=== PATIENT | male | born 1970 | race Caucasian/White ===

== ENCOUNTER 2025-05-17 17:50 | Emergency (ER) | payer OTHER, SELFPAY ==
[2025-05-17 17:59] VITALS: BP 182/114; PULSE 76; RESP 16; TEMP 36.6; O2SAT 96; BMI 42.3
--- NOTE | 2025-05-17 18:09 | ED.WOUNDLAC ---
HPI - Wound/Laceration General Chief Complaint: Wound/Laceration Stated Complaint: R index finger laceration Time Seen by Provider: 05/17/25 18:08 History of Present Illness HPI narrative: Mr. Cabral is a pleasant 55-year-old male with a past medical history of hypertension, ANDREY who presents to the emergency department for a laceration to his right index finger that occurred while working on the [employer]. Patient states he was attempting to open the packaging on a small battery when his pocket knife slipped and cut the back of his right index finger. He now has a 2 cm linear laceration on the dorsal aspect of the distal phalanx. No nail bed involvement. Bleeding is controlled with direct pressure. No blood thinner use. Tdap not up-to-date within last 5 years. Related Data Home Medications ?Medication ?Instructions ?Recorded ?Confirmed [VICODIN] PRN ##0 02/09/11 05/10/19 [employer] Dreamstation BIPAP #1 ea 11/09/18 05/10/19 Previous Rx's ?Medication ?Instructions ?Recorded lisinopril 40 mg tablet (Zestril) 40 mg PO QDAY ##10 07/04/12 lisinopril 20 1 tab PO QDAY ##30 07/05/12 mg-hydrochlorothiazide 25 mg tablet (Zestoretic) Allergies Allergy/AdvReac Type Severity Reaction Status Date / Time Amoxicillin Allergy Unknown UNKNOWN Uncoded 05/10/19 09:05 Review of Systems Review of Systems ROS Unobtainable: All systems reviewed & are unremarkable except as noted in HPI and below Patient History Medical History Benign essential HTN Obstructive sleep apnea of adult Primary insomnia Family History Mother Anxiety Sister Anxiety Social History occupational status: employed 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 Exam Narrative Exam Narrative: GENERAL: 55 year old patient appears stated age. Well-developed patient, in no acute distress. HEAD: Atraumatic. Normocephalic. CARDIOVASCULAR: Regular rate RESPIRATORY: ?Nonlabored respirations. ?Speaking in clear, full sentences. ? EXTREMITIES: Right index finger with 2 cm linear laceration across the distal and mid phalanx on the dorsal aspect. No nail involvement. Superficial. Full isolated flexion/extension of the DIP, PIP, MCP. Brisk cap refill in fingertip and sensation intact to light touch. NEURO: AOx3. ?Clear speech. ?Moves all 4 extremities appropriately. SKIN: Right index finger laceration described above. Initial Vital Signs Initial Vital Signs: Vital Signs Temperature 97.8 F 05/17/25 17:59 Pulse Rate 76 05/17/25 17:59 Respiratory Rate 16 05/17/25 17:59 Blood Pressure 182/114 H 05/17/25 17:59 Pulse Oximetry 96 05/17/25 17:59 Oxygen Delivery Method Room Air 05/17/25 17:59 Course Orders Ordered: Discontinued Medications Diphtheria/Tetanus/Acell Pertussis (Tet,Diph,Pertuss(Acell),Vac/Pf 0.5 Ml Syringe) 0.5 ml IM .ONCE ONE Stop: 05/17/25 18:44 Last Admin: 05/17/25 18:52 Dose: 0.5 ml Documented By: DILMA Vital Signs Vital signs: Vital Signs - 8 hr 05/17/25 17:59 05/17/25 19:24 Temperature 97.8 F 98 F Pulse Rate 76 69 Respiratory Rate 16 18 Blood Pressure 182/114 H 172/96 H Pulse Oximetry 96 97 Oxygen Delivery Method Room Air Room Air MDM - Wound/Laceration Medical Records Attestation: I reviewed the patient's medical records. MDM Narrative Medical decision making narrative: 55-year-old male with a past medical history of hypertension, ANDREY who presents to the emergency department for a laceration to his right index finger that occurred while working on the [employer]. Differential diagnosis includes but is not limited to laceration, foreign body, etc. On exam patient is in no acute distress, nontoxic appearing, vital signs appropriate except for elevated blood pressure, he does take blood pressure medication but reports he has white coat hypertension. Patient has a linear superficial laceration across the dorsal aspect of his right index finger that occurred for a pocket knife. We will update his Tdap today. Laceration was soaked in diluted Betadine, cleansed, irrigated and closed using Dermabond, and aluminum splint was then placed to keep the finger extended to prevent dehiscence. Discussed proper wound care, PCP follow up and ER return precautions. Patient verbalized understanding of all information is agreeable to the plan. We discussed monitoring his blood pressure, which is asymptomatic. L and I paperwork filled out. He is stable for discharge home all questions answered. Discharge Plan Departure Patient Disposition: Home Clinical Impression: Laceration of index finger Qualifiers: Encounter type: initial encounter Damage to nail status: without damage Foreign body presence: without foreign body Laterality: right Qualified Code(s): S61.210A - Laceration without foreign body of right index finger without damage to nail, initial encounter Instructions: DI for Laceration Repair, DI for Laceration Repair-Skin Glue Activity Restrictions/Additional Instructions: Dear Mr. Cabral, Today you had a laceration to your right index finger. We have used Dermabond which is skin glue to close the wound. Please do not apply any ointment to the Dermabond as this will break down the adhesive. Please avoid picking or peeling off the glue, able come off on its own in about 1-2 weeks. Please keep the dressing on your wound clean, dry, and intact for the next 24 hours. After this time, you may remove the dressing and gently clean the wound with soap and water, then pat dry. Keep the wound clean and covered and use the splint to prevent the wound from opening back up. Avoid soaking the wound in any water such as a bath, pool, or the ocean. If you develop any signs of wound infection such as increased redness, pus drainage, streaking redness, or fevers, please return to the ER immediately for evaluation. Once sutures are removed and the wound has healed, apply sunscreen daily to reduce the appearance of scars. We updated your tetanus shot today. Your blood pressure was elevated in the emergency department today, as we discussed, please take your blood pressure daily at home and record these values to keep track and bring with you to your next primary care doctor's appointment. Please follow up with your primary care doctor within the next 2-3 days for ER follow-up. (If you do not have a PCP you can call [phone]. ?to schedule an appointment with an [facility] Primary Care Provider) IF YOU DEVELOP ANY NEW OR WORSENING SYMPTOMS, RETURN TO THE ER! Please read the attached instructions, they highlight more specific treatments and interventions for you at home. Thank you for letting me participate in your care, Addei Rivas PA-C Prescriptions: No Action [VICODIN] PRN Qty: 0 lisinopril [Zestril] 40 MG tablet 40 mg PO QDAY Qty: 10 0RF lisinopril-hydrochlorothiazide [Zestoretic] 20 MG/25 MG tablet 1 tab PO QDAY Qty: 30 3RF (DME) [employer] Dreamstation BIPAP Qty: 1 Dose Instruction: As directed Patient Comments: Pressure: IPAP 14 EPAP 6 DME: [facility] Rx Instructions: As directed Referrals: Jam Brady MD [Primary Care Provider, Family Practice] Stand Alone Forms: Patient Portal/API, Work Release Note
[2025-05-17] MEDS: TET,DIPH,PERTUSS(ACELL),VAC/PF 0.5 ML SYRINGE IM (18:52)
[2025-05-17 19:24] VITALS: BP 172/96; PULSE 69; RESP 18; TEMP 36.6; O2SAT 97
== END 2025-05-17 19:25 | disposition home or self-care (01) ==
PROVIDERS: Emergency Provider Physician Assistant; Family Provider Family Medicine; PCP Family Medicine
DX: S61.210A Laceration without foreign body of right index finger without damage to nail, initial encounter (principal); W26.0XXA Contact with knife, initial encounter; Z23 Encounter for immunization
CPT/HCPCS: 12001; 90471; 99283; 90715